=== PATIENT | female | born 1960 | race Caucasian/White ===

== ENCOUNTER 2018-10-03 09:01 | Day surgery (SDC) | payer OTHER ==
[2018-10-03] MEDS ORDERED: LIDOCAINE 2% MDV (20MG/ML) 20ML VIAL IV ONE (09:02)
[2018-10-03] MEDS ORDERED: PROPOFOL 10 MG/ML VIAL IV ONE (09:02)
--- NOTE | 2018-10-04 08:30 | Operative Note ---
OPERATION: COLONOSCOPY to the cecum with cold snare polypectomy x2. INDICATION: Colorectal cancer screening. This is the patient's first examination. ANESTHESIA: Intravenous sedation was administered by the department of anesthesiology and included Diprivan titrated to effect. PROCEDURE: Following informed consent from this alert individual including a discussion of the risks and benefits of the procedure and an opportunity for the patient to ask questions, the patient was in the left lateral decubitus position. A digital rectal examination was performed. No abnormalities were noted. Following this, the Olympus [id number] video colonoscope was inserted into the rectum without resistance. The rectal mucosa had a normal appearance with normal folds and distensibility. The colonoscope was advanced up through the colon to the level of the cecum without much difficulty. Throughout the bowel the mucosa appeared normal, the folds were normal, and the bowel was fairly well distensible. The cecum was defined by noting the appendiceal orifice and ileocecal valve. The colon preparation was good. From the base of the cecum, the colonoscope was then slowly withdrawn. No changes were noted throughout the bowel until the rectum was reached. Within the rectum, there were two 5 mm polyps noted each removed with application of cold snare polypectomy and suctioned through the colonoscope into a collection trap. No other changes were appreciated in retroflexion. The endoscope was straightened and removed. The patient tolerated the procedure well and was returned to the recovery area in stable condition. IMPRESSION: 1. Two 5 mm rectal polyps removed with cold snare polypectomy. 2. Otherwise unremarkable colonoscopy to the cecum. RECOMMENDATIONS: Further recommendations will be forthcoming pending pathology. Followup will also be with Jose Read DO. As always, thank you for allowing me to participate in the care of your patient. CARMEN
== END 2018-10-03 11:32 | disposition home or self-care (01) ==
LOC: HOP 09:01
PROVIDERS: ATTEND Internal Medicine Gastroenterology
DX: Z12.11 Encounter for screening for malignant neoplasm of colon (principal); K62.1 Rectal polyp; D47.3 Essential (hemorrhagic) thrombocythemia; E78.00 Pure hypercholesterolemia, unspecified